=== PATIENT | male | born 1960 | race Caucasian/White ===

== ENCOUNTER 2017-11-11 05:42 | Inpatient (IN) | payer BC, OTHER ==
[~2017-11-11] VITALS: Ht 170.2 cm; Wt 68.4 kg
[2017-11-11] VITALS (11 sets, daily range): BP systolic 100–131; BP diastolic 78–99
[~2017-11-11 05:42] MED LIST: ACET-895 PO; CYCL-1 PO; CYCL-394 PO; HYDR12.522 PO; TRAM50TA2 PO
[2017-11-11] MEDS ORDERED: adenosine 3mg/ml 2ml vial IV ONE ×2 (06:10→06:35)
[2017-11-11] MEDS ORDERED: normal saline 1000ML IV soln IVB ONE ×2 (06:10→08:00)
[2017-11-11] MEDS ORDERED: ondansetron/PF 4mg/2ml inj IV ONE (06:20)
[2017-11-11] MEDS ORDERED: magnesium 2GM in 50ml NS 50 ML IV ONE (06:20)
[2017-11-11] MEDS ORDERED: diltiazem 5mg/ml 5ml inj. IV ONE ×2 (06:20→06:40)
[2017-11-11] MEDS ORDERED: ketorolac trometh. 30mg/ml inj. IV ONE (06:20)
[2017-11-11 06:29] LABS: BASOPHILS % (AUTO) 0.3 % (0-1); EOSINOPHILS # (AUTO) 0.2 X10'3 (0-0.9); EOSINOPHILS % (AUTO) 1.5 % (0-6); HEMATOCRIT 44.1 % (42.0-52.0); HEMOGLOBIN 15.1 g/dl (14.0-17.9); LYMPHOCYTES # (AUTO) 1.8 X10'3 (1.1-4.8); MEAN CORPUSCULAR HEMOGLOBIN 31.7 PG (27.0-31.0); MEAN CORPUSCULAR HGB CONC 34.4 % (33.0-36.5); MEAN CORPUSCULAR VOLUME 92.2 FL (78-98); MEAN PLATELET VOLUME 10.7 FL (7.4-10.4); MONOCYTES # (AUTO) 1.1 X10'3 (0-0.9); MONOCYTES % (AUTO) 9.8 % (2-12); NEUTROPHILS # (AUTO) 7.7 X10'3 (1.8-7.7); NEUTROPHILS % (AUTO) 71.4 % (42-75); PLATELET COUNT 194 X10'3 (140-440); RED BLOOD COUNT 4.78 X10'6 (4.70-6.10); RED CELL DISTRIBUTION WIDTH 14.4 % (11.5-14.5); WHITE BLOOD COUNT 10.9 X10'3 (4.5-11.0)
[2017-11-11 06:38] LABS: INR 1.3 INR; PROTHROMBIN TIME 13.1 SECONDS (9.0-12.0)
[2017-11-11] MEDS ORDERED: amiodarone 50MG/ML inj IV ONE ×4 (06:40→10:00)
[2017-11-11] MEDS ORDERED: amiodarone 150mg/dext, iso-os 100 ML IV ONE ×2 (06:45→12:20)
[2017-11-11 06:51] LABS: ALANINE AMINOTRANSFERASE 59 U/L (12-78); ALBUMIN 3.4 G/DL (3.4-5.0); ALBUMIN/GLOBULIN RATIO 1.1 (1.1-1.5); ALKALINE PHOSPHATASE 54 IU/L (46-116); ANION GAP 12 (8-16); ASPARTATE AMINO TRANSFERASE 36 U/L (10-37); BILIRUBIN,TOTAL 1.1 MG/DL (0.1-1.0); BLOOD UREA NITROGEN 27 MG/DL (7-18); BUN/CREATININE RATIO 16.9 (5.4-32.0); CALCIUM 8.9 MG/DL (8.5-10.1); CHLORIDE 103 MMOL/L (99-107); GLUCOSE 125 MG/DL (70-104); MAGNESIUM 1.9 MG/DL (1.5-2.4); SODIUM 141 MMOL/L (135-145); TOTAL CARBON DIOXIDE 26.4 MMOL/L (24-32); TOTAL PROTEIN 6.5 G/DL (6.4-8.2); eGFR 44 ML/MIN
[2017-11-11] MEDS: potassium 10mEq/100ml NS w/LIDOcaine (10mg/bag) IV SCH ×2 (06:53→08:24)
[2017-11-11 07:00] LABS: ISTAT CREATININE 1.4 mg/dL (0.8-1.3); ISTAT HGB 15.6 g/dl (14.0-18.0); ISTAT IONIZED CALCIUM 1.06 mmol/L (1.03-1.32); ISTAT K 3.3 mmol/L (3.5-5.1)
[2017-11-11 07:12] LABS: PHOSPHORUS 4.2 MG/DL (2.3-4.5)
[2017-11-11 07:26] LABS: LARGE PLATELETS FEW; PLATELET ESTIMATE NORMAL
[2017-11-11] MEDS ORDERED: vancomycin inj 1,000 MG in normal saline 250ml IV soln 250 ML IV STA (07:27)
[2017-11-11] MEDS ORDERED: vancomycin/NS 1 GM ADD-VANTAGE 250 ML IV ONE (07:37)
[2017-11-11] MEDS ORDERED: normal saline 1000ml 1,000 ML IVB SCH (07:55)
[2017-11-11] MEDS ORDERED: acetaminophen 325mg tablet PO PRN ×2 (08:45)
[2017-11-11] MEDS ORDERED: potassium Cl 20 mEq SR tablet PO PRN (08:45)
[2017-11-11] MEDS ORDERED: potassium Cl 40MEQ/250ML bag 250 ML IV SCH (08:45)
[2017-11-11] MEDS ORDERED: magnesium 2GM in 50ml NS 50 ML IV PRN (08:45)
[2017-11-11] MEDS ORDERED: potassium Cl 40MEQ/NS 500ml 500 ML IV PRN ×2 (08:45)
[2017-11-11] MEDS ORDERED: potassium Cl 40MEQ/250ML bag 250 ML IV PRN (08:45)
[2017-11-11] MEDS ORDERED: magnesium Cl slow-release 64mg tablet PO PRN (08:45)
[2017-11-11] MEDS ORDERED: magnesium 4gm in 100ml NS 100 ML IV PRN (08:45)
[2017-11-11] MEDS: normal saline 1000ml 1,000 ML IV SCH ×2 (08:57→22:23)
[2017-11-11] MEDS ORDERED: METO-539 PO (09:00)
[2017-11-11] MEDS ORDERED: LOSA1TAB39 PO (09:00)
[2017-11-11] MEDS ORDERED: epiNEPHrine 0.1mg/ml 10ml syringe ONE (10:00)
[2017-11-11] MEDS ORDERED: sod chloride 0.9% 10ml flush syringe IV ONE (10:00)
[2017-11-11] MEDS ORDERED: etomidate 2mg/ml inj. ONE (10:00)
[2017-11-11] MEDS ORDERED: HYDR-3964 PO (10:25)
[2017-11-11 11:35] LABS: CHOL/HDL RATIO 3.5 (0.00-4.99); CHOLESTEROL 92 MG/DL (0-200); HDL CHOLESTEROL 26 MG/DL (35-60); LDL CHOLESTEROL 60 MG/DL (50-100); TRIGLYCERIDES 52 MG/DL (20-135)
[2017-11-11] MEDS: amiodarone/D5 360MG/200ML BAG 200 ML IV SCH ×2 (13:49→19:53)
[2017-11-11 14:07] LABS: MAGNESIUM 2.2 MG/DL (1.5-2.4); POTASSIUM 3.8 MMOL/L (3.5-5.1)
[2017-11-11] MEDS: morphine 2 MG/ML inj. syringe IV PRN ×3 (16:21→21:17)
[2017-11-11] MEDS: ondansetron/PF 4mg/2ml inj IV PRN (16:30)
[2017-11-11] MEDS: potassium Cl 20 mEq SR tablet PO PRN (18:53)
[2017-11-11] MEDS: docusate sod 100mg capsule PO SCH (20:00)
[2017-11-11] MEDS: heparin, porcine 5000 units/ml vial SQ SCH (20:38)
[2017-11-12] VITALS (24 sets, daily range): BP systolic 103–132; BP diastolic 67–99
[2017-11-12] MEDS: ondansetron/PF 4mg/2ml inj IV PRN (01:55)
[2017-11-12] MEDS: morphine 2 MG/ML inj. syringe IV PRN ×7 (01:56→23:44)
[2017-11-12 05:07] LABS: BASOPHILS % (AUTO) 0.4 % (0-1); EOSINOPHILS # (AUTO) 0.2 X10'3 (0-0.9); EOSINOPHILS % (AUTO) 1.9 % (0-6); HEMATOCRIT 41.7 % (42.0-52.0); HEMOGLOBIN 14.3 g/dl (14.0-17.9); LYMPHOCYTES # (AUTO) 1.9 X10'3 (1.1-4.8); LYMPHOCYTES % (AUTO) 18.9 % (21-51); MEAN CORPUSCULAR HEMOGLOBIN 31.8 PG (27.0-31.0); MEAN CORPUSCULAR HGB CONC 34.4 % (33.0-36.5); MEAN CORPUSCULAR VOLUME 92.6 FL (78-98); MEAN PLATELET VOLUME 11.1 FL (7.4-10.4); NEUTROPHILS % (AUTO) 68.8 % (42-75); PLATELET COUNT 150 X10'3 (140-440); RED BLOOD COUNT 4.51 X10'6 (4.70-6.10); RED CELL DISTRIBUTION WIDTH 14.3 % (11.5-14.5); WHITE BLOOD COUNT 10.1 X10'3 (4.5-11.0)
[2017-11-12 05:34] LABS: ALANINE AMINOTRANSFERASE 58 U/L (12-78); ALBUMIN 3.1 G/DL (3.4-5.0); ALKALINE PHOSPHATASE 49 IU/L (46-116); ANION GAP 11 (8-16); ASPARTATE AMINO TRANSFERASE 33 U/L (10-37); BILIRUBIN,TOTAL 0.6 MG/DL (0.1-1.0); BLOOD UREA NITROGEN 30 MG/DL (7-18); BUN/CREATININE RATIO 22.1 (5.4-32.0); CALCIUM 7.7 MG/DL (8.5-10.1); CHLORIDE 102 MMOL/L (99-107); CREATININE 1.36 MG/DL (0.60-1.10); GLUCOSE 108 MG/DL (70-104); MAGNESIUM 1.9 MG/DL (1.5-2.4); PHOSPHORUS 3.8 MG/DL (2.3-4.5); POTASSIUM 3.8 MMOL/L (3.5-5.1); SODIUM 135 MMOL/L (135-145); TOTAL CARBON DIOXIDE 22.1 MMOL/L (24-32); TOTAL PROTEIN 6.1 G/DL (6.4-8.2); eGFR 54 ML/MIN
[2017-11-12] MEDS: amiodarone/D5 360MG/200ML BAG 200 ML IV SCH ×2 (06:51→18:41)
[2017-11-12] MEDS: docusate sod 100mg capsule PO SCH ×2 (08:47→20:00)
[2017-11-12] MEDS: heparin, porcine 5000 units/ml vial SQ SCH ×2 (08:48→20:43)
[2017-11-12] MEDS ORDERED: potassium Cl 20 mEq SR tablet PO STA (09:02)
[2017-11-12] MEDS: metoprolol succinate 25mg (24-HOUR) SR. Tablet PO SCH (09:03)
[2017-11-12] MEDS: normal saline 1000ml 1,000 ML IV SCH (11:25)
[2017-11-12] MEDS ORDERED: potassium Cl 20 mEq SR tablet PO ONE (14:25)
[2017-11-12] MEDS: furosemide 40mg tablet PO SCH ×2 (14:29→20:43)
[2017-11-12] MEDS: potassium Cl 20 mEq SR tablet PO SCH (18:02)
[2017-11-12] MEDS: losartan 25mg tablet PO SCH (20:43)
[2017-11-13] VITALS (23 sets, daily range): BP systolic 59–119; BP diastolic 60–90
[2017-11-13 01:52] LABS: BASOPHILS # (AUTO) 0.1 X10'3 (0-0.2); BASOPHILS % (AUTO) 0.4 % (0-1); EOSINOPHILS % (AUTO) 0.3 % (0-6); HEMATOCRIT 42.1 % (42.0-52.0); HEMOGLOBIN 14.3 g/dl (14.0-17.9); LYMPHOCYTES # (AUTO) 1.3 X10'3 (1.1-4.8); LYMPHOCYTES % (AUTO) 9.7 % (21-51); MEAN CORPUSCULAR HEMOGLOBIN 31.4 PG (27.0-31.0); MEAN CORPUSCULAR HGB CONC 33.9 % (33.0-36.5); MEAN CORPUSCULAR VOLUME 92.6 FL (78-98); MEAN PLATELET VOLUME 11.7 FL (7.4-10.4); MONOCYTES # (AUTO) 1.2 X10'3 (0-0.9); MONOCYTES % (AUTO) 8.8 % (2-12); NEUTROPHILS # (AUTO) 10.6 X10'3 (1.8-7.7); NEUTROPHILS % (AUTO) 80.8 % (42-75); PLATELET COUNT 172 X10'3 (140-440); RED BLOOD COUNT 4.55 X10'6 (4.70-6.10); RED CELL DISTRIBUTION WIDTH 13.7 % (11.5-14.5); WHITE BLOOD COUNT 13.2 X10'3 (4.5-11.0)
[2017-11-13 02:07] LABS: ALANINE AMINOTRANSFERASE 60 U/L (12-78); ALBUMIN 3.3 G/DL (3.4-5.0); ALBUMIN/GLOBULIN RATIO 1.1 (1.1-1.5); ALKALINE PHOSPHATASE 53 IU/L (46-116); ANION GAP 8 (8-16); ASPARTATE AMINO TRANSFERASE 27 U/L (10-37); BILIRUBIN,TOTAL 0.6 MG/DL (0.1-1.0); BLOOD UREA NITROGEN 26 MG/DL (7-18); BUN/CREATININE RATIO 19.3 (5.4-32.0); CALCIUM 7.8 MG/DL (8.5-10.1); CHLORIDE 100 MMOL/L (99-107); CREATININE 1.35 MG/DL (0.60-1.10); GLUCOSE 119 MG/DL (70-104); MAGNESIUM 1.6 MG/DL (1.5-2.4); PHOSPHORUS 3.8 MG/DL (2.3-4.5); POTASSIUM 4.5 MMOL/L (3.5-5.1); SODIUM 133 MMOL/L (135-145); TOTAL CARBON DIOXIDE 24.7 MMOL/L (24-32); TOTAL PROTEIN 6.3 G/DL (6.4-8.2); eGFR 54 ML/MIN
[2017-11-13] MEDS ORDERED: magnesium 4gm in 100ml NS 100 ML IV ONE (02:30)
[2017-11-13] MEDS: morphine 2 MG/ML inj. syringe IV PRN ×2 (02:34→05:17)
[2017-11-13] MEDS: amiodarone/D5 360MG/200ML BAG 200 ML IV SCH (06:01)
[2017-11-13] MEDS ORDERED: morphine 5 MG/ML injection IV PRN (07:30)
[2017-11-13] MEDS: furosemide 40mg tablet PO SCH ×2 (07:41→20:13)
[2017-11-13] MEDS: metoprolol succinate 25mg (24-HOUR) SR. Tablet PO SCH (07:41)
[2017-11-13] MEDS: potassium Cl 20 mEq SR tablet PO SCH ×2 (07:42→16:56)
[2017-11-13] MEDS: heparin, porcine 5000 units/ml vial SQ SCH ×2 (08:00→20:13)
[2017-11-13] MEDS: docusate sod 100mg capsule PO SCH ×2 (08:00→20:13)
[2017-11-13] MEDS: morphine 8mg/ml inj. syringe IV PRN ×2 (11:52→14:24)
[2017-11-13] MEDS ORDERED: fentaNYL/PF 50MCG/1 ML 2ML syringe ONE (11:53)
[2017-11-13] MEDS ORDERED: LIDOcaine 1%/PF (10mg/ml) 5ml vial ONE (11:53)
[2017-11-13] MEDS ORDERED: iohexol 350MG/ML 100ml bottle IV ONE (11:53)
[2017-11-13] MEDS ORDERED: midazolam 2 mg/2 ml injection ONE (11:53)
[2017-11-13] MEDS ORDERED: HYDROcodone/acetaminophen 5mg/325mg tablet PO PRN (14:15)
[2017-11-13] MEDS ORDERED: proCHLORperazine 10 MG/2 ml inj IV PRN (14:15)
[2017-11-13] MEDS ORDERED: ondansetron/PF 4mg/2ml inj IV PRN (14:15)
[2017-11-13] MEDS: amiodarone 200mg tablet PO SCH ×2 (16:56→20:13)
[2017-11-13] MEDS: HYDROcodone/acetaminophen 10/325mg tab PO PRN (16:57)
[2017-11-13] MEDS: losartan 25mg tablet PO SCH (20:13)
[2017-11-13] MEDS: morphine 5 MG/ML injection IV PRN (20:14)
[2017-11-13] MEDS: OXAZEpam 15mg capsule PO PRN (22:48)
[2017-11-14] VITALS (16 sets, daily range): BP systolic 68–108; BP diastolic 50–80
[2017-11-14 05:16] LABS: BASOPHILS # (AUTO) 0.1 X10'3 (0-0.2); BASOPHILS % (AUTO) 0.9 % (0-1); EOSINOPHILS # (AUTO) 0.2 X10'3 (0-0.9); EOSINOPHILS % (AUTO) 2.2 % (0-6); HEMOGLOBIN 14.1 g/dl (14.0-17.9); LYMPHOCYTES # (AUTO) 1.2 X10'3 (1.1-4.8); MEAN CORPUSCULAR HEMOGLOBIN 31.7 PG (27.0-31.0); MEAN CORPUSCULAR HGB CONC 34.4 % (33.0-36.5); MEAN CORPUSCULAR VOLUME 92.1 FL (78-98); MEAN PLATELET VOLUME 11.3 FL (7.4-10.4); MONOCYTES # (AUTO) 1.1 X10'3 (0-0.9); NEUTROPHILS % (AUTO) 72.9 % (42-75); PLATELET COUNT 122 X10'3 (140-440); RED BLOOD COUNT 4.45 X10'6 (4.70-6.10); RED CELL DISTRIBUTION WIDTH 14.6 % (11.5-14.5); WHITE BLOOD COUNT 9.6 X10'3 (4.5-11.0)
[2017-11-14 05:47] LABS: ALANINE AMINOTRANSFERASE 57 U/L (12-78); ALBUMIN 3.1 G/DL (3.4-5.0); ALKALINE PHOSPHATASE 57 IU/L (46-116); ANION GAP 9 (8-16); ASPARTATE AMINO TRANSFERASE 31 U/L (10-37); BILIRUBIN,TOTAL 0.7 MG/DL (0.1-1.0); BLOOD UREA NITROGEN 30 MG/DL (7-18); BUN/CREATININE RATIO 25.4 (5.4-32.0); CALCIUM 7.9 MG/DL (8.5-10.1); CHLORIDE 98 MMOL/L (99-107); CREATININE 1.18 MG/DL (0.60-1.10); GLUCOSE 68 MG/DL (70-104); MAGNESIUM 1.8 MG/DL (1.5-2.4); POTASSIUM 3.5 MMOL/L (3.5-5.1); SODIUM 135 MMOL/L (135-145); TOTAL CARBON DIOXIDE 27.7 MMOL/L (24-32); TOTAL PROTEIN 6.2 G/DL (6.4-8.2); eGFR 63 ML/MIN
[2017-11-14 07:43] LABS: LARGE PLATELETS FEW; PLATELET ESTIMATE DECREASED
[2017-11-14] MEDS: amiodarone 200mg tablet PO SCH ×2 (07:54→20:26)
[2017-11-14] MEDS: morphine 5 MG/ML injection IV PRN (07:54)
[2017-11-14] MEDS: docusate sod 100mg capsule PO SCH ×2 (07:54→20:00)
[2017-11-14] MEDS: potassium Cl 20 mEq SR tablet PO SCH ×3 (07:54→17:30)
[2017-11-14] MEDS: heparin, porcine 5000 units/ml vial SQ SCH ×2 (07:54→20:28)
[2017-11-14] MEDS: metoprolol succinate 25mg (24-HOUR) SR. Tablet PO SCH (08:00)
[2017-11-14] MEDS ORDERED: amiodarone 200mg tablet PO ONE (08:30)
[2017-11-14] MEDS: furosemide 20 MG/2 ML vial IV SCH ×2 (09:23→20:27)
[2017-11-14] MEDS: HYDROcodone/acetaminophen 10/325mg tab PO PRN ×3 (09:32→20:26)
[2017-11-14] MEDS: losartan 25mg tablet PO SCH (20:29)
[2017-11-15] VITALS (7 sets, daily range): BP systolic 100–126; BP diastolic 37–82
[2017-11-15] MEDS: HYDROcodone/acetaminophen 10/325mg tab PO PRN ×4 (03:04→21:48)
[2017-11-15 05:27] LABS: BASOPHILS % (AUTO) 0.3 % (0-1); EOSINOPHILS # (AUTO) 0.2 X10'3 (0-0.9); EOSINOPHILS % (AUTO) 2.1 % (0-6); HEMATOCRIT 38.7 % (42.0-52.0); HEMOGLOBIN 13.5 g/dl (14.0-17.9); LYMPHOCYTES # (AUTO) 1.2 X10'3 (1.1-4.8); LYMPHOCYTES % (AUTO) 12.1 % (21-51); MEAN CORPUSCULAR HEMOGLOBIN 31.7 PG (27.0-31.0); MEAN CORPUSCULAR HGB CONC 34.9 % (33.0-36.5); MEAN CORPUSCULAR VOLUME 90.8 FL (78-98); MEAN PLATELET VOLUME 11.1 FL (7.4-10.4); MONOCYTES # (AUTO) 1.3 X10'3 (0-0.9); MONOCYTES % (AUTO) 12.9 % (2-12); NEUTROPHILS # (AUTO) 7.3 X10'3 (1.8-7.7); NEUTROPHILS % (AUTO) 72.6 % (42-75); PLATELET COUNT 122 X10'3 (140-440); RED BLOOD COUNT 4.27 X10'6 (4.70-6.10); RED CELL DISTRIBUTION WIDTH 14.7 % (11.5-14.5); WHITE BLOOD COUNT 10.1 X10'3 (4.5-11.0)
[2017-11-15 06:14] LABS: ALANINE AMINOTRANSFERASE 55 U/L (12-78); ALBUMIN 2.9 G/DL (3.4-5.0); ALBUMIN/GLOBULIN RATIO 0.9 (1.1-1.5); ALKALINE PHOSPHATASE 58 IU/L (46-116); ANION GAP 9 (8-16); ASPARTATE AMINO TRANSFERASE 33 U/L (10-37); BILIRUBIN,TOTAL 0.6 MG/DL (0.1-1.0); BLOOD UREA NITROGEN 29 MG/DL (7-18); BUN/CREATININE RATIO 23.6 (5.4-32.0); CALCIUM 8.1 MG/DL (8.5-10.1); CHLORIDE 98 MMOL/L (99-107); CREATININE 1.23 MG/DL (0.60-1.10); GLUCOSE 89 MG/DL (70-104); MAGNESIUM 1.6 MG/DL (1.5-2.4); PHOSPHORUS 4.1 MG/DL (2.3-4.5); POTASSIUM 3.8 MMOL/L (3.5-5.1); SODIUM 135 MMOL/L (135-145); TOTAL CARBON DIOXIDE 28.1 MMOL/L (24-32); eGFR 60 ML/MIN
[2017-11-15] MEDS: potassium Cl 20 mEq SR tablet PO SCH ×3 (06:55→18:12)
[2017-11-15 07:32] LABS: LARGE PLATELETS FEW; PLATELET ESTIMATE DECREASED
[2017-11-15] MEDS: furosemide 20 MG/2 ML vial IV SCH ×2 (08:27→21:32)
[2017-11-15] MEDS: heparin, porcine 5000 units/ml vial SQ SCH ×2 (08:30→20:00)
[2017-11-15] MEDS: metoprolol succinate 25mg (24-HOUR) SR. Tablet PO SCH (08:35)
[2017-11-15] MEDS: docusate sod 100mg capsule PO SCH ×2 (08:35→20:00)
[2017-11-15] MEDS: amiodarone 200mg tablet PO SCH ×2 (08:35→21:27)
[2017-11-15] MEDS: losartan 25mg tablet PO SCH (21:32)
[2017-11-15] MEDS: OXAZEpam 15mg capsule PO PRN (21:32)
[2017-11-16 03:00] VITALS: BP 115/70
[2017-11-16 06:30] VITALS: BP 106/66
[2017-11-16 07:06] LABS: BASOPHILS % (AUTO) 0.2 % (0-1); EOSINOPHILS # (AUTO) 0.2 X10'3 (0-0.9); EOSINOPHILS % (AUTO) 1.7 % (0-6); HEMATOCRIT 36.1 % (42.0-52.0); HEMOGLOBIN 12.4 g/dl (14.0-17.9); LYMPHOCYTES % (AUTO) 10.2 % (21-51); MEAN CORPUSCULAR HEMOGLOBIN 31.6 PG (27.0-31.0); MEAN CORPUSCULAR HGB CONC 34.4 % (33.0-36.5); MEAN CORPUSCULAR VOLUME 91.9 FL (78-98); MEAN PLATELET VOLUME 10.3 FL (7.4-10.4); MONOCYTES # (AUTO) 1.4 X10'3 (0-0.9); MONOCYTES % (AUTO) 14.3 % (2-12); NEUTROPHILS # (AUTO) 7.3 X10'3 (1.8-7.7); NEUTROPHILS % (AUTO) 73.6 % (42-75); PLATELET COUNT 130 X10'3 (140-440); RED BLOOD COUNT 3.93 X10'6 (4.70-6.10); RED CELL DISTRIBUTION WIDTH 14.5 % (11.5-14.5); WHITE BLOOD COUNT 9.9 X10'3 (4.5-11.0)
[2017-11-16 07:29] LABS: ALANINE AMINOTRANSFERASE 56 U/L (12-78); ALKALINE PHOSPHATASE 55 IU/L (46-116); ANION GAP 7 (8-16); ASPARTATE AMINO TRANSFERASE 35 U/L (10-37); BILIRUBIN,TOTAL 0.7 MG/DL (0.1-1.0); BLOOD UREA NITROGEN 21 MG/DL (7-18); BUN/CREATININE RATIO 16.9 (5.4-32.0); CHLORIDE 98 MMOL/L (99-107); CREATININE 1.24 MG/DL (0.60-1.10); GLUCOSE 95 MG/DL (70-104); MAGNESIUM 1.5 MG/DL (1.5-2.4); PHOSPHORUS 3.3 MG/DL (2.3-4.5); POTASSIUM 3.8 MMOL/L (3.5-5.1); SODIUM 136 MMOL/L (135-145); TOTAL CARBON DIOXIDE 30.6 MMOL/L (24-32); eGFR 60 ML/MIN
[2017-11-16] MEDS: potassium Cl 20 mEq SR tablet PO SCH (07:38)
[2017-11-16] MEDS: metoprolol succinate 25mg (24-HOUR) SR. Tablet PO SCH (07:38)
[2017-11-16] MEDS: amiodarone 200mg tablet PO SCH ×2 (07:39→20:57)
[2017-11-16] MEDS: docusate sod 100mg capsule PO SCH ×2 (07:39→20:57)
[2017-11-16] MEDS: HYDROcodone/acetaminophen 10/325mg tab PO PRN ×3 (07:40→19:05)
[2017-11-16] MEDS: furosemide 20 MG/2 ML vial IV SCH (08:17)
[2017-11-16] MEDS: heparin, porcine 5000 units/ml vial SQ SCH ×2 (08:18→20:57)
[2017-11-16 11:00] VITALS: BP 96/49
[2017-11-16 15:00] VITALS: BP 97/59
[2017-11-16] MEDS ORDERED: potassium Cl 20 mEq SR tablet PO SCH (17:30)
[2017-11-16 19:00] VITALS: BP 134/83
[2017-11-16] MEDS: furosemide 40mg/4ml inj IV SCH (20:57)
[2017-11-16] MEDS: losartan 25mg tablet PO SCH (20:58)
[2017-11-16] MEDS: OXAZEpam 15mg capsule PO PRN (20:58)
[2017-11-16 23:00] VITALS: BP 99/53
[2017-11-17 03:00] VITALS: BP_SYST 112; BP_SYST 118; BP_DIAS 66; BP_DIAS 70
[2017-11-17 05:06] LABS: BASOPHILS % (AUTO) 0.4 % (0-1); EOSINOPHILS # (AUTO) 0.2 X10'3 (0-0.9); EOSINOPHILS % (AUTO) 2.6 % (0-6); HEMATOCRIT 38.2 % (42.0-52.0); HEMOGLOBIN 13.1 g/dl (14.0-17.9); LYMPHOCYTES # (AUTO) 1.1 X10'3 (1.1-4.8); LYMPHOCYTES % (AUTO) 11.5 % (21-51); MEAN CORPUSCULAR HEMOGLOBIN 31.7 PG (27.0-31.0); MEAN CORPUSCULAR HGB CONC 34.4 % (33.0-36.5); MEAN CORPUSCULAR VOLUME 92.1 FL (78-98); MEAN PLATELET VOLUME 10.2 FL (7.4-10.4); MONOCYTES # (AUTO) 1.5 X10'3 (0-0.9); MONOCYTES % (AUTO) 15.8 % (2-12); NEUTROPHILS # (AUTO) 6.5 X10'3 (1.8-7.7); NEUTROPHILS % (AUTO) 69.7 % (42-75); PLATELET COUNT 139 X10'3 (140-440); RED BLOOD COUNT 4.15 X10'6 (4.70-6.10); RED CELL DISTRIBUTION WIDTH 14.6 % (11.5-14.5); WHITE BLOOD COUNT 9.4 X10'3 (4.5-11.0)
[2017-11-17] MEDS: HYDROcodone/acetaminophen 10/325mg tab PO PRN ×4 (05:09→19:59)
[2017-11-17 05:37] LABS: ALANINE AMINOTRANSFERASE 53 U/L (12-78); ALBUMIN/GLOBULIN RATIO 0.9 (1.1-1.5); ALKALINE PHOSPHATASE 55 IU/L (46-116); ANION GAP 5 (8-16); ASPARTATE AMINO TRANSFERASE 36 U/L (10-37); BILIRUBIN,TOTAL 0.9 MG/DL (0.1-1.0); BLOOD UREA NITROGEN 18 MG/DL (7-18); BUN/CREATININE RATIO 13.4 (5.4-32.0); CALCIUM 8.6 MG/DL (8.5-10.1); CHLORIDE 100 MMOL/L (99-107); CREATININE 1.34 MG/DL (0.60-1.10); GLUCOSE 103 MG/DL (70-104); MAGNESIUM 1.6 MG/DL (1.5-2.4); PHOSPHORUS 3.2 MG/DL (2.3-4.5); POTASSIUM 4.6 MMOL/L (3.5-5.1); SODIUM 139 MMOL/L (135-145); TOTAL CARBON DIOXIDE 34.4 MMOL/L (24-32); TOTAL PROTEIN 6.4 G/DL (6.4-8.2); eGFR 55 ML/MIN
[2017-11-17 06:00] VITALS: BP 101/47
[2017-11-17] MEDS: metoprolol succinate 25mg (24-HOUR) SR. Tablet PO SCH (08:07)
[2017-11-17] MEDS: potassium Cl 20 mEq SR tablet PO SCH ×2 (08:07→17:30)
[2017-11-17] MEDS: docusate sod 100mg capsule PO SCH ×2 (08:07→20:00)
[2017-11-17] MEDS: amiodarone 200mg tablet PO SCH (08:07)
[2017-11-17] MEDS: heparin, porcine 5000 units/ml vial SQ SCH ×2 (08:11→19:59)
[2017-11-17] MEDS: furosemide 40mg/4ml inj IV SCH ×2 (08:19→19:59)
[2017-11-17 11:00] VITALS: BP 102/57
[2017-11-17] MEDS ORDERED: magnesium 2GM in 50ml NS 50 ML IV PRN (14:00)
[2017-11-17] MEDS ORDERED: potassium Cl 40MEQ/NS 500ml 500 ML IV PRN ×2 (14:00)
[2017-11-17] MEDS ORDERED: magnesium 4gm in 100ml NS 100 ML IV PRN (14:00)
[2017-11-17] MEDS ORDERED: potassium Cl 20 mEq SR tablet PO PRN ×2 (14:00)
[2017-11-17] MEDS: magnesium Cl slow-release 64mg tablet PO PRN (14:11)
[2017-11-17 15:00] VITALS: BP 108/72
[2017-11-17 19:00] VITALS: BP 109/67
[2017-11-17] MEDS: losartan 25mg tablet PO SCH (20:00)
[2017-11-17] MEDS: OXAZEpam 15mg capsule PO PRN (22:46)
[2017-11-17] MEDS ORDERED: Melatonin 3mg tablet PO PRN (22:50)
[2017-11-17 23:00] VITALS: BP 113/67
[2017-11-18 03:00] VITALS: BP 118/66
[2017-11-18 05:20] LABS: BASOPHILS % (AUTO) 0.3 % (0-1); EOSINOPHILS # (AUTO) 0.2 X10'3 (0-0.9); EOSINOPHILS % (AUTO) 2.2 % (0-6); HEMATOCRIT 39.2 % (42.0-52.0); HEMOGLOBIN 13.5 g/dl (14.0-17.9); LYMPHOCYTES % (AUTO) 10.2 % (21-51); MEAN CORPUSCULAR HEMOGLOBIN 31.7 PG (27.0-31.0); MEAN CORPUSCULAR HGB CONC 34.4 % (33.0-36.5); MEAN CORPUSCULAR VOLUME 92.2 FL (78-98); MEAN PLATELET VOLUME 9.9 FL (7.4-10.4); MONOCYTES # (AUTO) 1.6 X10'3 (0-0.9); MONOCYTES % (AUTO) 15.9 % (2-12); NEUTROPHILS # (AUTO) 7.3 X10'3 (1.8-7.7); NEUTROPHILS % (AUTO) 71.4 % (42-75); PLATELET COUNT 145 X10'3 (140-440); RED BLOOD COUNT 4.25 X10'6 (4.70-6.10); RED CELL DISTRIBUTION WIDTH 14.3 % (11.5-14.5); WHITE BLOOD COUNT 10.3 X10'3 (4.5-11.0)
[2017-11-18 06:00] VITALS: BP 122/71
[2017-11-18 06:06] LABS: ALANINE AMINOTRANSFERASE 56 U/L (12-78); ALBUMIN/GLOBULIN RATIO 0.8 (1.1-1.5); ALKALINE PHOSPHATASE 58 IU/L (46-116); ANION GAP 5 (8-16); ASPARTATE AMINO TRANSFERASE 36 U/L (10-37); BILIRUBIN,TOTAL 0.7 MG/DL (0.1-1.0); BLOOD UREA NITROGEN 19 MG/DL (7-18); BUN/CREATININE RATIO 15.4 (5.4-32.0); CALCIUM 8.6 MG/DL (8.5-10.1); CHLORIDE 98 MMOL/L (99-107); CREATININE 1.23 MG/DL (0.60-1.10); GLUCOSE 102 MG/DL (70-104); MAGNESIUM 1.6 MG/DL (1.5-2.4); PHOSPHORUS 3.6 MG/DL (2.3-4.5); POTASSIUM 4.4 MMOL/L (3.5-5.1); SODIUM 137 MMOL/L (135-145); TOTAL CARBON DIOXIDE 33.6 MMOL/L (24-32); TOTAL PROTEIN 6.6 G/DL (6.4-8.2); eGFR 60 ML/MIN
[2017-11-18] MEDS: docusate sod 100mg capsule PO SCH ×2 (08:11→20:00)
[2017-11-18] MEDS: furosemide 40mg/4ml inj IV SCH ×2 (08:11→20:27)
[2017-11-18] MEDS: heparin, porcine 5000 units/ml vial SQ SCH ×2 (08:11→20:27)
[2017-11-18] MEDS: metoprolol succinate 25mg (24-HOUR) SR. Tablet PO SCH (08:11)
[2017-11-18] MEDS: amiodarone 200mg tablet PO SCH ×2 (08:11→20:26)
[2017-11-18] MEDS: magnesium Cl slow-release 64mg tablet PO PRN (08:12)
[2017-11-18] MEDS: HYDROcodone/acetaminophen 10/325mg tab PO PRN ×3 (08:22→20:27)
[2017-11-18] MEDS: potassium Cl 20 mEq SR tablet PO SCH ×2 (08:30→17:06)
[2017-11-18 11:00] VITALS: BP 100/51
[2017-11-18 15:00] VITALS: BP 103/67
[2017-11-18 19:00] VITALS: BP 121/68
[2017-11-18] MEDS: losartan 25mg tablet PO SCH (20:25)
[2017-11-18 23:00] VITALS: BP 109/64
[2017-11-18] MEDS: OXAZEpam 15mg capsule PO PRN (23:23)
[2017-11-19] MEDS: HYDROcodone/acetaminophen 10/325mg tab PO PRN ×5 (00:39→21:09)
[2017-11-19 03:00] VITALS: BP 110/53
[2017-11-19 05:54] LABS: BASOPHILS % (AUTO) 0.3 % (0-1); EOSINOPHILS # (AUTO) 0.3 X10'3 (0-0.9); EOSINOPHILS % (AUTO) 2.5 % (0-6); HEMATOCRIT 38.3 % (42.0-52.0); HEMOGLOBIN 13.1 g/dl (14.0-17.9); LYMPHOCYTES # (AUTO) 1.4 X10'3 (1.1-4.8); LYMPHOCYTES % (AUTO) 13.1 % (21-51); MEAN CORPUSCULAR HEMOGLOBIN 31.7 PG (27.0-31.0); MEAN CORPUSCULAR HGB CONC 34.3 % (33.0-36.5); MEAN CORPUSCULAR VOLUME 92.7 FL (78-98); MEAN PLATELET VOLUME 9.6 FL (7.4-10.4); MONOCYTES # (AUTO) 1.9 X10'3 (0-0.9); MONOCYTES % (AUTO) 17.6 % (2-12); NEUTROPHILS % (AUTO) 66.5 % (42-75); PLATELET COUNT 152 X10'3 (140-440); RED BLOOD COUNT 4.14 X10'6 (4.70-6.10); RED CELL DISTRIBUTION WIDTH 13.8 % (11.5-14.5); WHITE BLOOD COUNT 10.5 X10'3 (4.5-11.0)
[2017-11-19 06:26] LABS: ALANINE AMINOTRANSFERASE 49 U/L (12-78); ALBUMIN 2.8 G/DL (3.4-5.0); ALBUMIN/GLOBULIN RATIO 0.8 (1.1-1.5); ALKALINE PHOSPHATASE 60 IU/L (46-116); ANION GAP 6 (8-16); ASPARTATE AMINO TRANSFERASE 29 U/L (10-37); BILIRUBIN,TOTAL 0.5 MG/DL (0.1-1.0); BLOOD UREA NITROGEN 19 MG/DL (7-18); BUN/CREATININE RATIO 16.1 (5.4-32.0); CALCIUM 8.4 MG/DL (8.5-10.1); CHLORIDE 97 MMOL/L (99-107); CREATININE 1.18 MG/DL (0.60-1.10); GLUCOSE 108 MG/DL (70-104); MAGNESIUM 1.8 MG/DL (1.5-2.4); PHOSPHORUS 3.8 MG/DL (2.3-4.5); POTASSIUM 3.7 MMOL/L (3.5-5.1); SODIUM 138 MMOL/L (135-145); TOTAL CARBON DIOXIDE 35.3 MMOL/L (24-32); TOTAL PROTEIN 6.4 G/DL (6.4-8.2); eGFR 63 ML/MIN
[2017-11-19 06:30] VITALS: BP 89/65
[2017-11-19] MEDS: heparin, porcine 5000 units/ml vial SQ SCH ×2 (08:00→21:08)
[2017-11-19] MEDS: docusate sod 100mg capsule PO SCH ×2 (08:15→20:00)
[2017-11-19] MEDS: amiodarone 200mg tablet PO SCH ×2 (08:16→21:08)
[2017-11-19] MEDS: furosemide 40mg/4ml inj IV SCH ×2 (08:16→21:07)
[2017-11-19] MEDS: magnesium Cl slow-release 64mg tablet PO PRN ×2 (08:17→16:52)
[2017-11-19] MEDS: potassium Cl 20 mEq SR tablet PO PRN ×3 (08:17→16:51)
[2017-11-19] MEDS: potassium Cl 20 mEq SR tablet PO SCH ×2 (08:17→16:51)
[2017-11-19] MEDS: metoprolol succinate 25mg (24-HOUR) SR. Tablet PO SCH (08:18)
[2017-11-19 11:00] VITALS: BP 105/63
[2017-11-19 15:00] VITALS: BP 115/66
[2017-11-19 19:00] VITALS: BP 115/74
[2017-11-19] MEDS: losartan 25mg tablet PO SCH (21:08)
[2017-11-19] MEDS: OXAZEpam 15mg capsule PO PRN (22:52)
[2017-11-19 23:00] VITALS: BP 105/68
[2017-11-20] VITALS (7 sets, daily range): BP systolic 105–133; BP diastolic 63–78
[2017-11-20] MEDS: HYDROcodone/acetaminophen 10/325mg tab PO PRN ×5 (03:34→22:39)
[2017-11-20 05:35] LABS: BASOPHILS % (AUTO) 0.3 % (0-1); EOSINOPHILS # (AUTO) 0.3 X10'3 (0-0.9); EOSINOPHILS % (AUTO) 3.3 % (0-6); HEMATOCRIT 39.7 % (42.0-52.0); HEMOGLOBIN 13.5 g/dl (14.0-17.9); LYMPHOCYTES # (AUTO) 1.1 X10'3 (1.1-4.8); LYMPHOCYTES % (AUTO) 10.5 % (21-51); MEAN CORPUSCULAR HEMOGLOBIN 31.4 PG (27.0-31.0); MEAN CORPUSCULAR HGB CONC 34.1 % (33.0-36.5); MEAN CORPUSCULAR VOLUME 92.1 FL (78-98); MEAN PLATELET VOLUME 9.3 FL (7.4-10.4); MONOCYTES # (AUTO) 1.6 X10'3 (0-0.9); MONOCYTES % (AUTO) 15.6 % (2-12); NEUTROPHILS # (AUTO) 7.1 X10'3 (1.8-7.7); NEUTROPHILS % (AUTO) 70.3 % (42-75); PLATELET COUNT 180 X10'3 (140-440); RED BLOOD COUNT 4.31 X10'6 (4.70-6.10); RED CELL DISTRIBUTION WIDTH 14.1 % (11.5-14.5); WHITE BLOOD COUNT 10.1 X10'3 (4.5-11.0)
[2017-11-20 06:16] LABS: ALANINE AMINOTRANSFERASE 56 U/L (12-78); ALBUMIN 2.8 G/DL (3.4-5.0); ALBUMIN/GLOBULIN RATIO 0.7 (1.1-1.5); ALKALINE PHOSPHATASE 60 IU/L (46-116); ANION GAP 7 (8-16); ASPARTATE AMINO TRANSFERASE 31 U/L (10-37); BILIRUBIN,TOTAL 0.5 MG/DL (0.1-1.0); BLOOD UREA NITROGEN 21 MG/DL (7-18); BUN/CREATININE RATIO 17.8 (5.4-32.0); CALCIUM 8.6 MG/DL (8.5-10.1); CHLORIDE 97 MMOL/L (99-107); CREATININE 1.18 MG/DL (0.60-1.10); GLUCOSE 121 MG/DL (70-104); MAGNESIUM 1.9 MG/DL (1.5-2.4); PHOSPHORUS 3.7 MG/DL (2.3-4.5); POTASSIUM 4.1 MMOL/L (3.5-5.1); SODIUM 137 MMOL/L (135-145); TOTAL PROTEIN 6.8 G/DL (6.4-8.2); eGFR 63 ML/MIN
[2017-11-20] MEDS: docusate sod 100mg capsule PO SCH ×2 (08:55→20:00)
[2017-11-20] MEDS: amiodarone 200mg tablet PO SCH ×2 (08:55→20:09)
[2017-11-20] MEDS: magnesium Cl slow-release 64mg tablet PO PRN (08:55)
[2017-11-20] MEDS: metoprolol succinate 25mg (24-HOUR) SR. Tablet PO SCH (08:57)
[2017-11-20] MEDS: potassium Cl 20 mEq SR tablet PO SCH ×2 (08:58→17:45)
[2017-11-20] MEDS: furosemide 40mg/4ml inj IV SCH ×2 (08:58→20:08)
[2017-11-20] MEDS: heparin, porcine 5000 units/ml vial SQ SCH ×2 (09:05→20:09)
[2017-11-20] MEDS: OXAZEpam 15mg capsule PO PRN ×2 (12:36→18:55)
[2017-11-20] MEDS: losartan 25mg tablet PO SCH (20:09)
[2017-11-21 02:00] VITALS: BP 112/67
[2017-11-21] MEDS: HYDROcodone/acetaminophen 10/325mg tab PO PRN ×2 (03:14→08:38)
[2017-11-21] MEDS: OXAZEpam 15mg capsule PO PRN ×2 (04:59→11:42)
[2017-11-21 06:00] LABS: BASOPHILS # (AUTO) 0.1 X10'3 (0-0.2); BASOPHILS % (AUTO) 0.6 % (0-1); EOSINOPHILS # (AUTO) 0.3 X10'3 (0-0.9); EOSINOPHILS % (AUTO) 3.5 % (0-6); HEMATOCRIT 39.8 % (42.0-52.0); HEMOGLOBIN 13.5 g/dl (14.0-17.9); LYMPHOCYTES # (AUTO) 1.3 X10'3 (1.1-4.8); LYMPHOCYTES % (AUTO) 14.9 % (21-51); MEAN CORPUSCULAR HEMOGLOBIN 31.1 PG (27.0-31.0); MEAN CORPUSCULAR HGB CONC 33.8 % (33.0-36.5); MEAN CORPUSCULAR VOLUME 91.8 FL (78-98); MEAN PLATELET VOLUME 9.4 FL (7.4-10.4); MONOCYTES # (AUTO) 1.4 X10'3 (0-0.9); MONOCYTES % (AUTO) 15.6 % (2-12); NEUTROPHILS # (AUTO) 5.8 X10'3 (1.8-7.7); NEUTROPHILS % (AUTO) 65.4 % (42-75); PLATELET COUNT 198 X10'3 (140-440); RED BLOOD COUNT 4.33 X10'6 (4.70-6.10); RED CELL DISTRIBUTION WIDTH 13.9 % (11.5-14.5); WHITE BLOOD COUNT 8.8 X10'3 (4.5-11.0)
[2017-11-21 06:25] LABS: ALANINE AMINOTRANSFERASE 55 U/L (12-78); ALBUMIN 2.8 G/DL (3.4-5.0); ALBUMIN/GLOBULIN RATIO 0.7 (1.1-1.5); ALKALINE PHOSPHATASE 63 IU/L (46-116); ANION GAP 7 (8-16); ASPARTATE AMINO TRANSFERASE 28 U/L (10-37); BILIRUBIN,TOTAL 0.5 MG/DL (0.1-1.0); BLOOD UREA NITROGEN 18 MG/DL (7-18); BUN/CREATININE RATIO 14.6 (5.4-32.0); CALCIUM 8.3 MG/DL (8.5-10.1); CHLORIDE 96 MMOL/L (99-107); CREATININE 1.23 MG/DL (0.60-1.10); GLUCOSE 125 MG/DL (70-104); MAGNESIUM 1.9 MG/DL (1.5-2.4); PHOSPHORUS 3.9 MG/DL (2.3-4.5); SODIUM 134 MMOL/L (135-145); TOTAL PROTEIN 6.8 G/DL (6.4-8.2); eGFR 60 ML/MIN
[2017-11-21 06:46] VITALS: BP 119/72
[2017-11-21] MEDS: heparin, porcine 5000 units/ml vial SQ SCH (08:36)
[2017-11-21] MEDS: amiodarone 200mg tablet PO SCH (08:36)
[2017-11-21] MEDS: metoprolol succinate 25mg (24-HOUR) SR. Tablet PO SCH (08:36)
[2017-11-21] MEDS: docusate sod 100mg capsule PO SCH (08:37)
[2017-11-21] MEDS: potassium Cl 20 mEq SR tablet PO SCH (08:37)
[2017-11-21] MEDS: furosemide 40mg/4ml inj IV SCH (08:38)
[2017-11-21] MEDS ORDERED: POTA20TA10 PO (10:47)
[2017-11-21] MEDS ORDERED: FURO10VI51 PO (10:47)
[2017-11-21] MEDS ORDERED: AMIO200T57 PO (10:47)
== END 2017-11-21 12:00 | disposition home or self-care (01) | DRG 287 ==
LOC: ER 05:42 → ED HOLD 08:45 → EDBEDREQTM 09:36 → EDBEDREQ 10:30 → ICU 2S 12:09 → CICU 2S 11-13 17:56 → PCU 3S 11-14 12:30
PROVIDERS: ADMIT Internal Medicine Critical Care Medicine
PROC: 02HV33Z Insertion of Infusion Device into Superior Vena Cava, Percutaneous Approach (ICD-10-PCS; 2017-11-11)
PROC: 5A2204Z Restoration of Cardiac Rhythm, Single (ICD-10-PCS; 2017-11-11)
PROC: 5A1213Z Performance of Cardiac Pacing, Intermittent (ICD-10-PCS; 2017-11-12)
PROC: 4A023N7 Measurement of Cardiac Sampling and Pressure, Left Heart, Percutaneous Approach (ICD-10-PCS; principal; 2017-11-13)
PROC: B2111ZZ Fluoroscopy of Multiple Coronary Arteries using Low Osmolar Contrast (ICD-10-PCS; 2017-11-13)
PROC: B2151ZZ Fluoroscopy of Left Heart using Low Osmolar Contrast (ICD-10-PCS; 2017-11-13)
DX: I47.1 Supraventricular tachycardia (principal); N17.9 Acute kidney failure, unspecified; I42.9 Cardiomyopathy, unspecified; I50.9 Heart failure, unspecified; I11.0 Hypertensive heart disease with heart failure; M41.9 Scoliosis, unspecified; E86.0 Dehydration; B19.20 Unspecified viral hepatitis C without hepatic coma; I49.3 Ventricular premature depolarization; Z72.0 Tobacco use; Z80.9 Family history of malignant neoplasm, unspecified; Z90.49 Acquired absence of other specified parts of digestive tract; Z71.6 Tobacco abuse counseling
CPT/HCPCS: 36415; 36556; 71045; 80047; 80053; 80061; 83735; 83880; 84100; 84132; 84484; 85025; 85610; 87070; 87502; 87503; 92960; 93005; 93306; 93458; 96365; 96366; 96367; 96375; 97116; 97162; 97530; 99152; 99153; 99291; 99292; A4620; A6257; A6449; C1751; C1769; J0153; J0171; J0282; J1644; J1885; J1940; J2001; J2250; J2270; J2405; J3010; J3370; J3475; J3480; J3490; J7030; Q9967

== ENCOUNTER 2017-12-30 10:34 | Emergency (ER) | payer BC ==
[~2017-12-30] VITALS: Ht 170.2 cm; Wt 71.0 kg
[~2017-12-30 10:34] MED LIST changes: -ACET-895 PO; +AMIO200T57 PO; -CYCL-1 PO; -CYCL-394 PO; +FURO10VI51 PO; +HYDR-3964 PO; -HYDR12.522 PO; +LOSA1TAB39 PO; +METO-539 PO; +POTA20TA10 PO; -TRAM50TA2 PO
[2017-12-30 10:35] VITALS: BP 124/86
[2017-12-30] MEDS ORDERED: orphenadrine citrate 60mg/2ml inj. IM ONE (10:50)
[2017-12-30] MEDS ORDERED: ketorolac trometh inj. 60 MG/2 ML VIAL IM ONE (10:50)
[2017-12-30] MEDS ORDERED: NAPR-56 PO (11:22)
[2017-12-30] MEDS ORDERED: CYCL-1 PO (11:23)
== END 2017-12-30 11:36 | disposition home or self-care (01) ==
LOC: ER 10:34
DX: S29.011A Strain of muscle and tendon of front wall of thorax, initial encounter (principal); I10 Essential (primary) hypertension; Z86.19 Personal history of other infectious and parasitic diseases; Z90.49 Acquired absence of other specified parts of digestive tract; Z79.899 Other long term (current) drug therapy; X58.XXXA Exposure to other specified factors, initial encounter; Y93.89 Activity, other specified; Y92.89 Other specified places as the place of occurrence of the external cause; Y99.8 Other external cause status
CPT/HCPCS: 96372; 99284; A4565; J1885; J2360